=== PATIENT | male | born 1955 | race Caucasian/White ===

== ENCOUNTER 2019-01-13 14:57 | Inpatient (IN) | payer BC ==
[~2019-01-13] VITALS: Ht 170.2 cm; Wt 57.0 kg
[2019-01-13] MEDS ORDERED: HYDROmorphONE 0.5 MG/0.5 ML SYG IV PRN (17:00)
[2019-01-13] MEDS ORDERED: HYDROCODONE/APAP (5/325) TAB PO PRN (17:00)
[2019-01-13 17:04] VITALS: Ht 170.2 cm; Wt 57.0 kg
[2019-01-13 17:10] VITALS: BP 146/82; PULSE 86; RESP 16
[2019-01-13] MEDS ORDERED: KETOROLAC 30 MG INJ IV STA (17:17)
--- NOTE | 2019-01-13 17:36 | HP ---
Date/Time of Note Date/Time of Note DATE: 01/13/19 TIME: 17:33 Assessment/Plan VTE Prophylaxis SCD applied (from Nsg): Yes Pharmacological prophylaxis: heparin Lines/Catheters IV Catheter Type (from Nrsg): [place] Lock Urinary Cath still in place: No Assessment/Plan Hospital Course 63 yo male with acute back pain - Suspect he has a muscle strain, perhaps a herniated disc - He has no neurologic findings on exam to warrant further imaging - I will give a toradol injection. I have offered opiate analgesia as well - Kathie welcome to go home this evenign with Rx i provided vs stay the night HPI/ROS Admit Date/Time Admit Date/Time Jan 13, 2019 at 16:42 Hx of Present Illness 63 yo male without significant PMH present wtih back pain Last week he was lifting boxes. Strained back at that time. Pain has progressed and is now quite severe. Located in paraspinal muscles in lumber area on the right. Denies any neurologic symptoms, no numbness or weakness. Pain has become progressively more severe so went to ED at [facility]. There XR of lumbar spine were normal. He was given [place] and then dilaudid IV which caused him nausea and vomiting. Subsequently was transferred here. N/V now resolved. Requesting to go home ROS Constitutional: no complaints, improved Eyes: no complaints ENT: no complaints Respiratory: no complaints Cardiovascular: no complaints Gastrointestinal: no complaints Genitourinary: no complaints Musculoskeletal: no complaints Skin: no complaints Neurologic: no complaints Endocrine: no complaints Lymphatic: no complaints Psychological: no complaints, nl mood/affect Immunologic: no complaints PMH/Family/Social Past Medical History Medical History: no pertinent history Medications Current Medications Ibuprofen (Motrin) 600 mg Q6H PRN PO .PAIN 1-3; Start 01/13/19 at 17:00 Acetaminophen/ Hydrocodone Bitart ([place] (5/325)) 2 tab Q6H PRN PO .SEVERE PAIN 7-10; Start 01/13/19 at 17:00 Hydromorphone HCl (Dilaudid) 0.5 mg Q4H PRN IV .SEVERE PAIN 7-10; Start 01/13/19 at 17:00 Coded Allergies: No Known Allergy (Unverified , 01/13/19) Past Surgical History Past Surgical Hx: no surgical history Family History Significant Family History: no pertinent family hx Social History Alcohol Use: none Drug Use: none Exam/Review of Systems Vital Signs Vitals Vital Signs Date Temp Pulse Resp B/P (MAP) Pulse Ox O2 O2 Flow FiO2 Time Delivery Rate 01/13/19 97.4 86 16 146/82 98 Room Air 17:10 (103) Exam Constitutional: alert, oriented, well developed Psych: no complaints, nl mood/affect Head: normocephalic, atraumatic Eyes: nl conjunctiva, EOMI, nl lids, nl sclera, PERRL ENMT: nl external ears & nose, nl lips & teeth, nl nasal mucosa & septum Neck: supple, non-tender Respiratory: clear to auscultation, normal air movement Cardiovascular: regular rate and rhythm, nl pulses Gastrointestinal: soft, nl liver, spleen, non-tender Musculoskeletal: nl extremities to inspection Extremities: normal pulses 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
[2019-01-13 20:00] VITALS: BP 148/83; PULSE 75; RESP 18
[2019-01-14 02:00] VITALS: BP 124/68; PULSE 63; RESP 18
[2019-01-14] MEDS: IBUPROFEN 600 MG TAB PO PRN ×2 (04:23→13:58)
[2019-01-14 08:27] VITALS: BP 120/74; PULSE 67; RESP 16
--- NOTE | 2019-01-14 12:44 | PDOCDIS ---
Discharge Instructions DIAGNOSIS Discharge Diagnosis Back pain CONDITION [id number] Patient Condition: [id number] Stable FOLLOW UP/APPOINTMENTS Follow-up Plan You should expect to have some pain for a few days or weeks. Use topical medication, NSAIDs, heat or ice pads for pain. You should make an appointment to see your doctor in the next few weeks. An MRI should be considered if you still have pain in a few weeks. GIFTY TONG MD Jan 14, 2019 12:43
--- NOTE | 2019-01-14 12:55 | DS ---
Date/Time of Note Date/Time of Note DATE: 01/14/19 TIME: 12:53 Discharge Summary Admission/Discharge Info Admit Date/Time Jan 13, 2019 at 16:42 Discharge Date/Time Discharge Diagnosis Back pain Patient Condition: Stable Hx of Present Illness 63 yo male without significant PMH present wt back pain Last week he was lifting boxes. Strained back at that time. Pain has progressed and is now quite severe. Located in paraspinal muscles in lumber area on the right. Denies any neurologic symptoms, no numbness or weakness. Pain has become progressively more severe so went to ED at [facility]. There XR of lumbar spine were normal. He was given [place] and then dilaudid IV which caused him nausea and vomiting. Subsequently was transferred here. N/V now resolved. Requesting to go home Hospital Course 63 yo male with acute back pain - I suspect he has a muscle strain, perhaps a herniated disc - He has no neurologic findings on exam to warrant further imaging - I give a toradol injection and opiate analgesia as well I suggested RICE for the acute back pain. If pain still present in a couple weeks should follow up [facility] PMD for further management. Given there are no neurologic or red flag signs I do no belive furthere neuroimaging is warranted at this time. XR was negative for bony pathology Follow-up Plan You should expect to have some pain for a few days or weeks. Use topical medication, NSAIDs, heat or ice pads for pain. You should make an appointment to see your doctor in the next few weeks. An MRI should be considered if you still have pain in a few weeks. Primary Care Provider Not On Staff Doctor Pending Labs Laboratory Tests Test 01/13/19 17:36 White Blood Count 7.0 10^3/ul (4.8-10.8) Red Blood Count 4.46 10^6/ul (4.70-6.10) Hemoglobin 13.6 g/dl (14.0-18.0) Hematocrit 40.9 % (42.0-52.0) Mean Corpuscular Volume 91.7 fl (82.0-101.0) Mean Corpuscular Hemoglobin 30.5 pg (29.0-33.0) Mean Corpuscular Hemoglobin Concent 33.3 g/dl (32.0-37.0) Red Cell Distribution Width 12.3 % (11.5-14.5) Platelet Count 264 10^3/UL (140-415) Mean Platelet Volume 8.9 fl (7.4-10.4) Immature Granulocytes % 0.400 % (0.001-0.429) Neutrophils % 82.6 % (39.0-77.0) Lymphocytes % 12.2 % (15.0-51.0) Monocytes % 4.6 % (0.0-11.0) Eosinophils % 0.1 % (0.0-7.0) Basophils % 0.1 % (0.0-2.0) Nucleated Red Blood Cells % 0.0 /100WBC (0.0-0.0) Immature Granulocytes # 0.030 10^3/ul (0.0-0.031) Neutrophils # 5.8 10^3/ul (1.6-7.5) Lymphocytes # 0.9 10^3/ul (0.8-2.9) Monocytes # 0.3 10^3/ul (0.3-0.9) Eosinophils # 0.0 10^3/ul (0.0-0.5) Basophils # 0.0 10^3/ul (0.0-0.1) Nucleated Red Blood Cells # 0.0 10^3/ul (0.0-0.0) Sodium Level 138 mmol/L (135-144) Potassium Level 4.0 mmol/L (3.5-5.1) Chloride Level 101 mmol/L (97-110) Carbon Dioxide Level 28 mmol/L (21-31) Anion Gap 9 (5-13) Blood Urea Nitrogen 12 mg/dl (7-20) Creatinine 0.57 mg/dl (0.61-1.24) Est Glomerular Filtrat Rate mL/min > 60 mL/min (>60) Glucose Level 134 mg/dl (70-220) Hemoglobin A1c 5.4 % (0-5.9) Calcium Level 9.5 mg/dl (8.4-10.2) Total Bilirubin 0.7 mg/dl (0.2-1.3) Direct Bilirubin 0.00 mg/dl (0.00-0.20) Indirect Bilirubin 0.7 mg/dl (0-1.1) Aspartate Amino Transf (AST/SGOT) 38 IU/L (15-46) Alanine Aminotransferase (ALT/SGPT) 25 IU/L (13-69) Alkaline Phosphatase 97 IU/L (42-121) Total Protein 8.1 g/dl (6.1-8.1) Albumin 4.5 g/dl (3.3-4.9) Globulin 3.60 g/dl (1.3-3.2) Albumin/Globulin Ratio 1.25 GIFTY TONG MD Jan 14, 2019 12:55
[2019-01-14 14:44] VITALS: BP 113/69; PULSE 66; RESP 20
== END 2019-01-14 15:26 | disposition home or self-care (01) | DRG 552 ==
LOC: PP2 16:42
PROVIDERS: ADMIT Internal Medicine; ATTEND Internal Medicine
DX: M54.9 Dorsalgia, unspecified (principal)
CPT/HCPCS: 80053; 83036; 85025; 97161; J1885